=== PATIENT | female | born 1990 | race Caucasian/White ===

== ENCOUNTER 2017-08-19 17:47 | Emergency (ER) | payer MEDICAID ==
[~2017-08-19] VITALS: Ht 162.6 cm; Wt 86.1 kg
[2017-08-19 18:11] VITALS: Ht 162.6 cm; Wt 86.1 kg
[2017-08-19 20:05] LABS: ADD UMIC YES; BASOPHILS % 0.4 % (0.0-2.0); EOSINOPHILS # 0.2 10^3/ul (0.0-0.5); EOSINOPHILS % 3.1 % (0.0-7.0); HEMATOCRIT 33.3 % (37.0-47.0); HEMOGLOBIN 11.5 g/dl (12.0-16.0); LYMPHOCYTES # 3.3 10^3/ul (0.8-2.9); LYMPHOCYTES % 43.3 % (15.0-51.0); MEAN CORPUSCULAR HEMOGLOBIN 29.8 pg (29.0-33.0); MEAN CORPUSCULAR HGB CONC 34.5 g/dl (32.0-37.0); MEAN CORPUSCULAR VOLUME 86.3 fl (82.0-101.0); MEAN PLATELET VOLUME 10.5 fl (7.4-10.4); MONOCYTE # 0.4 10^3/ul (0.3-0.9); MONOCYTES % 5.2 % (0.0-11.0); NEUTROPHIL # 3.7 10^3/ul (1.6-7.5); NEUTROPHILS % 47.7 % (39.0-77.0); PLATELET COUNT 189 10^3/UL (140-415); RED BLOOD COUNT 3.86 10^6/ul (4.20-5.40); RED CELL DISTRIBUTION WIDTH 12.9 % (11.5-14.5); UR ASCORBIC ACID NEGATIVE (NEGATIVE); UR BACTERIA FEW /HPF (NONE SEEN); UR BILIRUBIN (Dip) NEGATIVE (NEGATIVE); UR BLOOD (Dip) 3+ mg/dL (NEGATIVE); UR CLARITY SLIGHTLY CLOUDY (CLEAR); UR COLOR YELLOW (YELLOW); UR GLUCOSE (Dip) NEGATIVE (NEGATIVE); UR KETONES (Dip) NEGATIVE (NEGATIVE); UR LEUKOCYTE ESTERASE (Dip) TRACE Leu/ul (NEGATIVE); UR NITRITE (Dip) NEGATIVE (NEGATIVE); UR RBC 42 /HPF (0-5); UR SPECIFIC GRAVITY (Dip) 1.028 (1.003-1.030); UR SQUAMOUS EPITHELIAL CELL FEW /HPF (FEW); UR TOTAL PROTEIN (Dip) 1+ mg/dl (NEGATIVE); UR UROBILINOGEN (Dip) 1+ mg/dL (NEGATIVE); WHITE BLOOD COUNT 7.7 10^3/ul (4.8-10.8)
--- NOTE | 2017-08-19 20:48 | RADRPT ---
PROCEDURE: US Pelvis. CLINICAL INDICATION: Vaginal spotting TECHNIQUE: Transabdominal and transvaginal pelvic ultrasound are performed. COMPARISON: None. FINDINGS: The uterus is normal in echogenicity and anteverted in orientation. No focal fibroids are identif ied. Within the endometrial canal, gestational sac with normal double decidual reaction is seen. Fe ale pole is seen. No yolk sac is identified at this time. [place]-rump length measures 2.8 mm correspo nding to an estimated age of 5 weeks 4 days. No cardiac activity is detected at this time. No subchorionic hemorrhage is seen. Both ovaries are identified, and normal in size, shape, and appearance. No complex adnexal masses a re identified.. Normal Doppler flow is noted of both ovaries. The right ovary measures 3.0 x 2.2 x 2.4 cm, and the left ovary measures 3.9 x 2.5 x 2.3 cm There is no free fluid in the pelvis IMPRESSION: 1. Early IUP of approximately 5 weeks 4 days. At this point crown-rump length is seen. No yolk sac or cardiac activity detected. Recommend correlation with serial beta HCG level and a follow-up ultrasound. 2. No subchorionic hemorrhage is seen. 3. Unremarkable ovaries bilaterally. No complex adnexal masses. 4. No free fluid in the pelvis RPTAT: HH .Travon Casas MD, MD Date Time Electronically viewed and signed by .Travon Casas MD, MD on 08/19/2017 20:48 .W/
[2017-08-19] MEDS ORDERED: CEPH-443 PO (22:13)
[2017-08-19] MEDS ORDERED: ACET500C5 PO (22:13)
--- NOTE | 2017-08-19 23:31 | ERD ---
ER Documentation Chief Complaint Chief Complaint Pt with Vaginal spotting since 1400, 2 months HPI 27-year-old female patient who is a and is currently presents to the ED complaining of vaginal spotting that occurred earlier today at 2 PM. Reports that she did see her PRODUCE ASSISTANT a few days ago and was diagnosed with a urinary tract infection and has been taking antibiotics but is unsure of the name. Reports that her last menstruation was on June 22, 2017. Denies any chest pain, shortness of breath, nausea, vomiting, diarrhea, neck stiffness, dysuria, urgency, frequency, hematuria. ROS All systems reviewed and are negative except as per history of present illness. Medications Home Meds Active Scripts Cephalexin* (Keflex*) 500 Mg Capsule, 500 MG PO QID for 7 Days, CAP Prov:LAWSON HUBBARD PA-C 08/19/17 Acetaminophen* (Tylophen*) 500 Mg Capsule, 1 CAP PO Q6H Y for PAIN AND OR ELEVATED TEMP, #20 CAP Prov:LAWSON HUBBARD PA-C 08/19/17 Allergies Allergies: Coded Allergies: Peanut (Verified Allergy, Mild, SKIN RASH, 01/05/12) No Known Drug Allergies (Verified Allergy, Unknown, 01/05/12) PMhx/Soc Medical and Surgical Hx: pt denies Medical Hx, pt denies Surgical Hx Hx Alcohol Use: No Hx Substance Use: No Hx Tobacco Use: No Smoking Status: Never smoker Physical Exam Vitals Vital Signs Date Time Temp Pulse Resp B/P Pulse Ox O2 Delivery O2 Flow Rate FiO2 08/19/17 18:11 98.8 58 18 121/80 100 Physical Exam Const: Vos-fey-stxikuapx, well-nourished. In no acute distress. Head: Atraumatic, normocephalic Eyes: Normal Conjunctiva without injection. No purulent discharge. ENT: Normal external ear, nose. Moist oropharynx without tonsillar exudates. Non -erythematous pharynx. Uvula midline. No drooling. No trismus. Neck: No cervical midline tenderness. Full range of motion. No meningismus. No cervical lymphadenopathy. No JVD. Resp: Clear to auscultation bilaterally. No wheezing, rhonchi, rales, or crackles. No accessory muscle use. No retractions. Cardio: Regular rate and rhythm. No murmurs, rubs or gallops. Abd: Soft, nontender, non distended. Normal bowel sounds. No palpable masses. No rebound tenderness. No guarding. Negative McBurney's point. Negative psoas sign. Negative obturator sign. Skin: No petechiae or rashes Back: No midline tenderness. No CVA tenderness. Ext: No cyanosis, or edema. Neur: Awake and alert. Normal gait. Normal coordination. Psych: Normal Mood and Affect Results 24 hrs Laboratory Tests Test 08/19/17 19:44 White Blood Count 7.710^3/ul Red Blood Count 3.8610^6/ul Hemoglobin 11.5g/dl Hematocrit 33.3% Mean Corpuscular Volume 86.3fl Mean Corpuscular Hemoglobin 29.8pg Mean Corpuscular Hemoglobin Concent 34.5g/dl Red Cell Distribution Width 12.9% Platelet Count 86001^3/UL Mean Platelet Volume 10.5fl Neutrophils % 47.7% Lymphocytes % 43.3% Monocytes % 5.2% Eosinophils % 3.1% Basophils % 0.4% Nucleated Red Blood Cells % 0.0/100WBC Neutrophils # 3.710^3/ul Lymphocytes # 3.310^3/ul Monocytes # 0.410^3/ul Eosinophils # 0.210^3/ul Basophils # 0.010^3/ul Nucleated Red Blood Cells # 0.010^3/ul Urine Color YELLOW Urine Clarity SLIGHTLY CLOUDY Urine pH 7.0 Urine Specific [place] 1.028 Urine Ketones NEGATIVEmg/dL Urine Nitrite NEGATIVEmg/dL Urine Bilirubin NEGATIVEmg/dL Urine Urobilinogen 1+mg/dL Urine Leukocyte Esterase TRACELeu/ul Urine Microscopic RBC 42/HPF Urine Microscopic WBC 11/HPF Urine Squamous Epithelial Cells FEW/HPF Urine Bacteria FEW/HPF Urine Hemoglobin 3+mg/dL Urine Glucose NEGATIVEmg/dL Urine Total Protein 1+mg/dl Beta HCG, Quantitative 1095.5mIU/ml Procedures/MDM 27-year-old female patient with no significant past medical history presents to the ED complaining of vaginal spotting and is currently and is a . Patient is afebrile nontoxic appearing. Patient has normal vital signs. An ultrasound, beta-hCG, CBC, type and RH, UA was ordered to evaluate patient. CBC: No evidence of severe infection or anemia Urine: No elevation in nitrites, trace leukocyte esterase, 3+ hematuria. Rh: O positive. No indication for Rhogam at this time. beta Hc PROCEDURE: US Pelvis. CLINICAL INDICATION: Vaginal spotting TECHNIQUE: Transabdominal and transvaginal pelvic ultrasound are performed. COMPARISON: None. FINDINGS: The uterus is normal in echogenicity and anteverted in orientation. No focal fibroids are identified. Within the endometrial canal, gestational sac with normal double decidual reaction is seen. pole is seen. No yolk sac is identified at this time. [place]-rump length measures 2.8 mm corresponding to an estimated age of 5 weeks 4 days. No cardiac activity is detected at this time. No subchorionic hemorrhage is seen. Both ovaries are identified, and normal in size, shape, and appearance. No complex adnexal masses are identified.. Normal Doppler flow is noted of both ovaries. The right ovary measures 3.0 x 2.2 x 2.4 cm, and the left ovary measures 3.9 x 2.5 x 2.3 cm There is no free fluid in the pelvis IMPRESSION: 1. Early IUP of approximately 5 weeks 4 days. At this point crown-rump length is seen. No yolk sac or cardiac activity detected. Recommend correlation with serial beta HCG level and a follow-up ultrasound. 2. No subchorionic hemorrhage is seen. 3. Unremarkable ovaries bilaterally. No complex adnexal masses. 4. No free fluid in the pelvis Patient's bleeding symptoms have stabilized while in the department. Patient also has a UTI. Low suspicion for symptomatic anemia, ectopic , sepsis , PID, appendicitis, ovarian torsion, tubo-ovarian abscess, surgical abdomen, or other emergent conditions. Patient was educated that there is a risk for threatened . Discharge medications: Keflex, Tylenol Patient to follow up with PRODUCE ASSISTANT in 2 days for further evaluation and treatment repeat beta-hCG and ultrasound. Patient is to return sooner to the ED for any worsening symptoms. Patient's questions were answered. Patient understood and agreed with discharge plan. Departure Diagnosis: Primary Impression: Vaginal bleeding in patient at less than 20 weeks ges... Condition: Stable Patient Instructions: Urinary Tract Infections in Women, Bleeding During Early Referrals: COMMUNITY CLINICS YOU HAVE RECEIVED A MEDICAL SCREENING EXAM AND THE RESULTS INDICATE THAT YOU DO NOT HAVE A CONDITION THAT REQUIRES URGENT TREATMENT IN THE EMERGENCY DEPARTMENT. FURTHER EVALUATION AND TREATMENT OF YOUR CONDITION CAN WAIT UNTIL YOU ARE SEEN IN YOUR DOCTORS OFFICE WITHIN THE NEXT 1-2 DAYS. IT IS YOUR RESPONSIBILITY TO MAKE AN APPOINTMENT FOR FOLOW-UP CARE. IF YOU HAVE A PRIMARY DOCTOR --you should call your primary doctor and schedule an appointment IF YOU DO NOT HAVE A PRIMARY DOCTOR YOU CAN CALL OUR PHYSICIAN REFERRAL HOTLINE AT IF YOU CAN NOT AFFORD TO SEE A PHYSICIAN YOU CAN CHOSE FROM THE FOLLOWING [facility] [address] [facility] [address] [facility] [address] [facility] [address] [facility] [address] [facility]. [facility] [address] [facility] [facility] YOU HAVE RECEIVED A MEDICAL SCREENING EXAM AND THE RESULTS INDICATE THAT YOU DO NOT HAVE A CONDITION THAT REQUIRES URGENT TREATMENT IN THE EMERGENCY DEPARTMENT. FURTHER EVALUATION AND TREATMENT OF YOUR CONDITION CAN WAIT UNTIL YOU ARE SEEN IN YOUR DOCTORS OFFICE WITHIN THE NEXT 1-2 DAYS. IT IS YOUR RESPONSIBILITY TO MAKE AN APPOINTMENT FOR FOLOW-UP CARE. IF YOU HAVE A PRIMARY DOCTOR --you should call your primary doctor and schedule and appointment IF YOU DO NOT HAVE A PRIMARY DOCTOR YOU CAN CALL OUR PHYSICIAN REFERRAL HOTLINE AT . IF YOU CAN NOT AFFORD TO SEE A PHYSICIAN YOU CAN CHOSE FROM THE FOLLOWING [facility] INSTITUTIONS: [facility] [address] [place] [address] [facility] [address] [place] [address] [facility] [address] [place] [address] [facility] URGENT CARE/SPECIALTIES Additional Instructions: Call your PRODUCE ASSISTANT TOMORROW for an appointment during the next 2 days for repeat ultrasound and beta Hcg. See the doctor sooner or return here if your condition worsens before your appointment time. LAWSON HUBBARD PA-C Aug 19, 2017 23:31 worsens before your appointment time. LAWSON HUBBARD PA-C Aug 19, 2017 23:31
== END 2017-08-19 22:30 | disposition home or self-care (01) ==
LOC: FTE 17:47
DX: O20.9 Hemorrhage in early pregnancy, unspecified (principal); R10.2 Pelvic and perineal pain; Z3A.01 Less than 8 weeks gestation of pregnancy
CPT/HCPCS: 36415; 76801; 76817; 81001; 84702; 85025; 86900; 86901; Z7502

== ENCOUNTER 2017-08-21 12:45 | Emergency (ER) | payer MEDICAID ==
[~2017-08-21] VITALS: Ht 154.9 cm; Wt 86.3 kg
[~2017-08-21 12:45] MED LIST: ACET500C5 PO; CEPH-443 PO
[2017-08-21 12:50] VITALS: Ht 154.9 cm; Wt 86.3 kg
--- NOTE | 2017-08-21 13:17 | ERD ---
ER Documentation Chief Complaint Chief Complaint vaginal bleeding with clots -LMP 06/22/17 HPI 27-year-old female who is currently , LMP was 06-22-17 is returning to emergency department for increased vaginal bleeding and clot passage. The patient was seen on August 19 and had a beta quant at 1095, type and Rh O+, saw an early intrauterine . She comes in with pelvic cramping and increased vaginal bleeding. She denies fevers, chills, chest pain, shortness breath. She was told she had a UTI, she notified her OB and she was actually given a prescription for Macrobid already and she has been taking this so far. By the time the patient was seen in the emergency department she had only been taking the prescription for less than a day. ROS All systems reviewed and are negative except as per history of present illness. Medications Home Meds Active Scripts Cephalexin* (Keflex*) 500 Mg Capsule, 500 MG PO QID for 7 Days, CAP Prov:LAWSON HUBBARD PA-C 08/19/17 Acetaminophen* (Tylophen*) 500 Mg Capsule, 1 CAP PO Q6H Y for PAIN AND OR ELEVATED TEMP, #20 CAP Prov:LAWSON HUBBARD PA-C 08/19/17 Allergies Allergies: Coded Allergies: Peanut (Verified Allergy, Mild, SKIN RASH, 01/05/12) No Known Drug Allergies (Verified Allergy, Unknown, 01/05/12) PMhx/Soc Medical and Surgical Hx: pt denies Medical Hx, pt denies Surgical Hx Hx Alcohol Use: No Hx Substance Use: No Hx Tobacco Use: No Smoking Status: Never smoker Physical Exam Vitals Vital Signs Date Time Temp Pulse Resp B/P Pulse Ox O2 Delivery O2 Flow Rate FiO2 08/21/17 12:50 98.9 63 17 129/71 99 Physical Exam = General: Well-developed, well-nourished. The patient appears in no acute distress. HEENT: Head is normocephalic, atraumatic. No scleral icterus. Neck: Supple. Nontender. Lungs: Clear to auscultation. Normal air movement. Heart: Regular rate and rhythm. S1 and S2 are normal. No murmurs, gallops, or rubs. Abdomen: Soft, nontender, nondistended. Bowel sounds are normoactive. Extremities: No clubbing or cyanosis. Normal pulses. Moving extremities x 4. No weakness. Neurologic: Alert and oriented 3. No focal deficits. Skin: Normal turgor. No rash or lesions. Result Diagram: 08/21/17 1320 Results 24 hrs Laboratory Tests Test 08/21/17 13:10 08/21/17 13:20 Urine Color YELLOW Urine Clarity SLIGHTLY CLOUDY Urine pH 8.0 Urine Specific [place] 1.014 Urine Ketones NEGATIVEmg/dL Urine Nitrite NEGATIVEmg/dL Urine Bilirubin NEGATIVEmg/dL Urine Urobilinogen 1+mg/dL Urine Leukocyte Esterase NEGATIVELeu/ul Urine Microscopic RBC > 182/HPF Urine Microscopic WBC 16/HPF Urine Hemoglobin 3+mg/dL Urine Glucose NEGATIVEmg/dL Urine Total Protein 1+mg/dl White Blood Count 6.410^3/ul Red Blood Count 3.9510^6/ul Hemoglobin 11.8g/dl Hematocrit 33.5% Mean Corpuscular Volume 84.8fl Mean Corpuscular Hemoglobin 29.9pg Mean Corpuscular Hemoglobin Concent 35.2g/dl Red Cell Distribution Width 12.5% Platelet Count 94494^3/UL Mean Platelet Volume 10.3fl Neutrophils % 51.0% Lymphocytes % 38.2% Monocytes % 6.7% Eosinophils % 3.6% Basophils % 0.3% Nucleated Red Blood Cells % 0.0/100WBC Neutrophils # 3.310^3/ul Lymphocytes # 2.510^3/ul Monocytes # 0.410^3/ul Eosinophils # 0.210^3/ul Basophils # 0.010^3/ul Nucleated Red Blood Cells # 0.010^3/ul Beta HCG, Quantitative 1018.0mIU/ml DIAGNOSTIC IMAGING REPORT Patient: TRISTON MILLARD : 1990 Age: 27 Sex: F MR #: [id number] DOS: 08/21/17 1301 Ordering MD: ECHO VALDERRAMA PA-C Location: [facility] Room/Bed: PROCEDURE: US OB. CLINICAL INDICATION: Vaginal bleeding. TECHNIQUE: Transabdominal and transvaginal views of the pelvis are available for review. COMPARISON: 08/19/2017. FINDINGS: The patient's last menstrual period is 06/18/2017. The uterus measures 7.9 x 7 x 4.9 cm. Endometrium measures 13 mm and demonstrates no vascularity. No intrauterine gestational sac is identified. The right ovary measures 1.8 x 1.6 x 1.9 cm. The left ovary measures 2.7 x 1.4 x 1.3 cm. There is normal doppler flow to both ovaries. There is no free fluid. IMPRESSION: Intrauterine gestational sac now not identified. Findings could represent a completed . Recommend correlation with beta HCG levels and continued follow-up ultrasound. RPTAT: [facility] Elva Parish Physician Date Time Electronically viewed and signed by Elva Parish Physician on 08/21/2017 14:46 PH/ CC: ECHO VALDERRAMA PA-C Procedures/MDM 27-year-old female comes in with vaginal bleeding worsening with clot passage since she was discharged 2 days ago. The patient was found to have a small intrauterine that was early and her beta hCG was 1095.5. Today the pelvic ultrasound study shows no evidence of intrauterine , likely complete miscarriage as compared to 2 days ago. She is hemodynamically stable, without signs of endometritis, retained products. Her urine does show continuing evidence of a urinary tract infection despite taking Macrobid, the patient did receive a prescription for Keflex from the provider 2 days ago but she chose to take the Macrobid as advised by her OB. I have advised to start the Keflex because her urine analysis does show continuing infection. She is to recheck with her OB early next week for repeat examination. Type and Rh is O +, no RhoGam indicated at this time. Departure Diagnosis: Primary Impression: Miscarriage Additional Impression: UTI (urinary tract infection) Condition: ECHO Olivas PA-C Aug 21, 2017 13:17
[2017-08-21 13:29] LABS: BASOPHILS % 0.3 % (0.0-2.0); EOSINOPHILS # 0.2 10^3/ul (0.0-0.5); EOSINOPHILS % 3.6 % (0.0-7.0); HEMATOCRIT 33.5 % (37.0-47.0); HEMOGLOBIN 11.8 g/dl (12.0-16.0); LYMPHOCYTES # 2.5 10^3/ul (0.8-2.9); LYMPHOCYTES % 38.2 % (15.0-51.0); MEAN CORPUSCULAR HEMOGLOBIN 29.9 pg (29.0-33.0); MEAN CORPUSCULAR HGB CONC 35.2 g/dl (32.0-37.0); MEAN CORPUSCULAR VOLUME 84.8 fl (82.0-101.0); MEAN PLATELET VOLUME 10.3 fl (7.4-10.4); MONOCYTE # 0.4 10^3/ul (0.3-0.9); MONOCYTES % 6.7 % (0.0-11.0); NEUTROPHIL # 3.3 10^3/ul (1.6-7.5); PLATELET COUNT 189 10^3/UL (140-415); RED BLOOD COUNT 3.95 10^6/ul (4.20-5.40); RED CELL DISTRIBUTION WIDTH 12.5 % (11.5-14.5); WHITE BLOOD COUNT 6.4 10^3/ul (4.8-10.8)
[2017-08-21 14:06] LABS: ADD UMIC YES; UR ASCORBIC ACID NEGATIVE (NEGATIVE); UR BILIRUBIN (Dip) NEGATIVE (NEGATIVE); UR BLOOD (Dip) 3+ mg/dL (NEGATIVE); UR CLARITY SLIGHTLY CLOUDY (CLEAR); UR COLOR YELLOW (YELLOW); UR GLUCOSE (Dip) NEGATIVE (NEGATIVE); UR KETONES (Dip) NEGATIVE (NEGATIVE); UR LEUKOCYTE ESTERASE (Dip) NEGATIVE Leu/ul (NEGATIVE); UR NITRITE (Dip) NEGATIVE (NEGATIVE); UR RBC > 182 /HPF (0-5); UR SPECIFIC GRAVITY (Dip) 1.014 (1.003-1.030); UR TOTAL PROTEIN (Dip) 1+ mg/dl (NEGATIVE); UR UROBILINOGEN (Dip) 1+ mg/dL (NEGATIVE)
--- NOTE | 2017-08-21 14:46 | RADRPT ---
PROCEDURE: US OB. CLINICAL INDICATION: Vaginal bleeding. TECHNIQUE: Transabdominal and transvaginal views of the pelvis are available for review. COMPARISON: 08/19/2017. FINDINGS: The patient's last menstrual period is 06/18/2017. The uterus measures 7.9 x 7 x 4.9 cm. Endometrium measures 13 mm and demonstrates no vascularity. N o intrauterine gestational sac is identified. The right ovary measures 1.8 x 1.6 x 1.9 cm. The left ovary measures 2.7 x 1.4 x 1.3 cm. There is normal doppler flow to both ovaries. There is no free fluid. IMPRESSION: Intrauterine gestational sac now not identified. Findings could represent a completed . Brennan mmend correlation with beta HCG levels and continued follow-up ultrasound. RPTAT: [facility] Physician Cameron Date Time Electronically viewed and signed by Elva Parish Physician on 08/21/2017 14:46 PH/
== END 2017-08-21 15:08 | disposition home or self-care (01) ==
LOC: FTE 12:45
DX: O03.9 Complete or unspecified spontaneous abortion without complication (principal); O23.41 Unspecified infection of urinary tract in pregnancy, first trimester; R10.2 Pelvic and perineal pain
CPT/HCPCS: 36415; 76801; 76817; 81001; 84702; 85025; Z7502